=== PATIENT | male | born 2000 | race Two or more races ===

== ENCOUNTER 2022-05-19 14:05 | Emergency (ER) | payer OTHER, SELFPAY ==
[2022-05-19 14:14] VITALS: BP 145/80; PULSE 104; RESP 20; TEMP 38.1; O2SAT 100
--- NOTE | 2022-05-19 14:41 | ED.URI ---
HPI - URI/Sore Throat General Chief Complaint: Upper Respiratory Infection Stated Complaint: Coughing,Fever Time Seen by Provider: 05/19/22 14:20 Source: patient Mode of arrival: ambulatory Limitations: no limitations History of Present Illness HPI Narrative: Elsie is a 21-year-old male patient presenting to the clinic today with complaints of nasal congestion, cough and fever x2 days. He reports his mother is also sick. MD elicited complaint: fever, cough and nasal congestion Related Data Allergies Allergy/AdvReac Type Severity Reaction Status Date / Time Penicillins Allergy Mild Rash Verified 05/19/22 14:25 amoxicillin Allergy Unknown Verified 05/19/22 14:25 Sulfa (Sulfonamide Allergy Unknown Verified 05/19/22 14:25 Antibiotics) CETIRIZINE HCL AdvReac Intermediate EYES Uncoded 05/19/22 14:25 SWELLED SHUT Review of Systems Review of Systems: Pertinent positives per HPI. Patient denies any fever, chills, rash, headache, visual changes, dizziness, cough, shortness of breath, chest pain, palpitations, nausea, vomiting, diarrhea, constipation, abdominal pain, or any urinary issues. PMFSH Family History Family History Mother Family history of thyroid disease Family history of thalassemia Father Family history of diabetes mellitus in first degree relative Grandparent Family history of lupus erythematosus Social History Social History Smoking status: Never smoker Second hand tobacco smoke exposure: No Alcohol intake: never Gender identity (if verbalized by the patient): Male Comments At the time of my signature, I reviewed and agree with the nursing past medical, surgical, social, and family history. There is no relevant family history pertinent to the patient complaint. Exam Narrative: General: Well-developed, well nourished, in no apparent distress Head: Normocephalic, atraumatic Eyes: Pupils equally round and reactive to light bilaterally, EOM intact, sclera and conjunctive clear, no discharge, lids normal Ears: TMs intact and clear, ear canals clear, no drainage, grossly hearing normal. Nose: Nares patent, clear nasal discharge, no inflammation, no sinus tenderness. Mouth: Oral pharynx without lesions or masses, good dentition, MMM. oropharynx red, postnasal drip Neck: Supple, trachea midline, no enlargement of anterior or posterior cervical nodes, no thyroid masses or goiter palpable. Cardio: Regular rate and rhythm, s1 and s2 normal, no murmur appreciated. Resp: Clear to auscultation bilaterally, no rhonchi, rales, wheezing or rubs Course Course Emergency Course: Portions of this record may have been created with voice recognition software. Level of Care: Express Care Visit Vital Signs Vital signs: Vital Signs Temperature 38.1 C H 05/19/22 14:14 Pulse Rate 104 H 05/19/22 14:14 Respiratory Rate 20 05/19/22 14:14 Blood Pressure 145/80 H 05/19/22 14:14 Pulse Oximetry 100 05/19/22 14:14 Oxygen Delivery Room Air 05/19/22 14:14 Temperature 38.1 C H 05/19/22 14:14 Pulse Rate 104 H 05/19/22 14:14 Respiratory Rate 20 05/19/22 14:14 Blood Pressure 145/80 H 05/19/22 14:14 Pulse Oximetry 100 05/19/22 14:14 Oxygen Delivery Room Air 05/19/22 14:14 Vital signs reviewed MDM - URI/Sore Throat MDM Narrative Medical decision making narrative: at the time of visit patient is resting comfortably on the exam table. Influenza testing and COVID testing were completed in the clinic today COVID testing was negative and influenza test was positive. I will place the patient on a prescription for Tamiflu. Supportive measures were discussed with the patient and he voiced understanding of discharge instructions and agrees to treatment plan Differential Diagnosis Differential diagnosis: Likely upper respiratory infection, otitis media,
== END 2022-05-19 14:54 | disposition home or self-care (01) ==
PROVIDERS: Emergency Provider Nurse Practitioner Family
DX: J10.1 Influenza due to other identified influenza virus with other respiratory manifestations (principal); Z20.822 Contact with and (suspected) exposure to COVID-19
CPT/HCPCS: 87426; 87804; 99213; C9803; G0463

== ENCOUNTER 2022-10-04 21:51 | Emergency (ER) | payer OTHER, SELFPAY ==
--- NOTE | ~2022-10-04 | XR_ITS ---
Left ankle Technique: AP, oblique, and lateral views were obtained. Clinical History: 3 Findings: No acute fracture or dislocation is seen. Osseous alignment is anatomic. Ankle mortise and other visualized joint spaces are preserved. Lateral soft tissue swelling noted. Impression: No fracture or dislocation. Lateral soft tissue swelling. Reviewed, dictated and finalized at [facility]. Impression: No fracture or dislocation. Lateral soft tissue swelling.
[2022-10-04 21:53] VITALS: BP 155/70; PULSE 105; RESP 16; TEMP 37.3; O2SAT 98
--- NOTE | 2022-10-05 00:40 | ED.LOWEXIN ---
HPI - Extremity Injury (Lower) General Chief Complaint: Extremity Injury, Lower <Nae Caldera PA-C - Last Filed: 10/05/22 02:34> Stated Complaint: rolled left ankle <PAULO Clements Last Filed: 10/05/22 02:34> Time Seen by Provider: 10/04/22 22:57 <PAULO Clements Last Filed: 10/05/22 02:34> History of Present Illness HPI Narrative: 21-year-old male reports for evaluation of left ankle pain after he inverted it while playing basketball earlier this evening. He is reporting swelling and ecchymosis to the lateral aspect of the ankle, difficulty ambulating. He reports icing his ankle and taking ibuprofen 5 hours ago. Denies other injuries obtained, did not hit his head, no LOC. <PAULO Clements Last Filed: 10/05/22 02:34> Related Data Allergies/Adverse Reactions: Allergies Allergy/AdvReac Type Severity Reaction Status Date / Time Penicillins Allergy Mild Rash Verified 10/04/22 21:52 amoxicillin Allergy Unknown Other Verified 10/04/22 21:52 Sulfa (Sulfonamide Allergy Unknown Other Verified 10/04/22 21:52 Antibiotics) CETIRIZINE HCL AdvReac Intermediate EYES Uncoded 10/04/22 21:52 SWELLED SHUT <PAULO Clements Last Filed: 10/05/22 02:34> Review of Systems Review of Systems: CONSTITUTIONAL: Denies fever, chills EYES: Denies visual changes, redness, or discharge. ENT: Denies rhinorrhea, congestion, sore throat, or otalgia. CARDIOVASCULAR: Denies chest pain, palpitations, or edema. RESPIRATORY: Denies cough or dyspnea. GASTROINTESTINAL: Denies abdominal pain, nausea, vomiting, or diarrhea. GENITOURINARY: Denies dysuria or hematuria. SKIN: Denies rash or itching. MUSCULOSKELETAL: See HPI NEUROLOGIC: Denies headache, numbness, dizziness, or weakness. PSYCHIATRIC: Denies anxiety or depression. <PAULO Clements Last Filed: 10/05/22 02:34> COUNTS INCLUDE 234 BEDS AT THE [facility] Family History Family History: Family History Mother Family history of thyroid disease Family history of thalassemia Father Family history of diabetes mellitus in first degree relative Grandparent Family history of lupus erythematosus <Nae Caldera PA-C - Last Filed: 10/05/22 02:34> Social History Social History: Social History Smoking status: Never smoker Second hand tobacco smoke exposure: No Alcohol intake: never Gender identity (if verbalized by the patient): Male <Nae Caldera PA-C - Last Filed: 10/05/22 02:34> Exam Narrative: GENERAL: Well-appearing, well-nourished, and in no acute distress. Patient resting comfortably in exam bed. He is pleasant and conversational. HEAD: Normocephalic, atraumatic. EYES: PERRLA and EOMI. ENT: Nares clear, no rhinorrhea or epistaxis. Mucous membranes moist. Oropharynx without tonsillar hypertrophy exudate or other lesions. NECK: Supple. No adenopathy or masses. CHEST: Clear to auscultation. No respiratory distress. No wheezes rales or rhonchi HEART: Regular rate and rhythm. No murmur heard. Normal peripheral pulses. EXTREMITIES: LLE: Edema and ecchymosis over the lateral malleolus extending over the dorsal aspect of the foot. Negative Bowers's test. No tenderness over Achilles, proximal tibia, toes, medial malleolus, calcaneus. Negative calf squeeze. DP pulses 2+. Cap refill less than 2. Sensation intact. Patient able to wiggle his toes. Limited range of motion to ankle secondary to pain. SKIN: Warm, dry, no rash. NEURO: No focal deficits. Alert and oriented x3. PSYCH: Normal mood and affect. <Nae Caldera PA-C - Last Filed: 10/05/22 02:34> Course TECHNOLOGY RISK INTERN/PA Physician Supervision This is a was performed by both a physician and an APC. I performed all aspects of the MDM as documented w/ the following additions: 21-year-old male presenting with ankle pain. X-rays were negati
[2022-10-05] MEDS: HYDROcodone/acetaminophen (*CRX) 5-325 MG TABLET 1 TAB PO (01:38)
[2022-10-05] MEDS: IBUPROFEN 600 MG TABLET PO (01:38)
== END 2022-10-05 01:45 | disposition home or self-care (01) ==
LOC: ANHED 10-05 00:53
PROVIDERS: Emergency Provider Physician Assistant
DX: S93.402A Sprain of unspecified ligament of left ankle, initial encounter (principal); X50.0XXA Overexertion from strenuous movement or load, initial encounter
CPT/HCPCS: 73610; 99283; A9270

== ENCOUNTER 2023-10-11 13:36 | Emergency (ER) | payer OTHER, SELFPAY ==
--- NOTE | 2023-10-11 13:37 | ED.URI ---
HPI - URI/Sore Throat General Chief Complaint: Upper Respiratory Infection Stated Complaint: allergy flare up Time Seen by Provider: 10/11/23 13:37 Source: patient Mode of arrival: ambulatory Limitations: no limitations History of Present Illness HPI Narrative: Abel is a 22-year-old male patient presenting to the clinic today with complaints of ?allergy flare-up?. He reports no fever or chills. Productive cough at times with clear phlegm and sometimes the light green phlegm. Reports when he blows his nose he also has clear phlegm and sometimes like green phlegm and sometimes a little bit of blood in his nasal secretions. States he does have some chest tightness at times and pain in his back. History of asthma. Is taking his albuterol inhaler, allergy eyedrops, Flonase, and Claritin without relief. Symptoms have been going on for about a week. Is wheezing at times. Denies any shortness of breath or wheeze at this time. MD elicited complaint: sore throat and nasal congestion Related Data Allergies Allergy/AdvReac Type Severity Reaction Status Date / Time Penicillins Allergy Mild Rash Verified 10/11/23 13:49 amoxicillin Allergy Unknown Other Verified 10/11/23 13:49 Sulfa (Sulfonamide Allergy Unknown Other Verified 10/11/23 13:49 Antibiotics) CETIRIZINE HCL AdvReac Intermediate EYES Uncoded 10/11/23 13:49 SWELLED SHUT Review of Systems Review of Systems: Pertinent positives per HPI. Patient denies any fever, chills, rash, headache, visual changes, dizziness,sore throat, shortness of breath, chest pain, palpitations, nausea, vomiting, diarrhea, constipation, abdominal pain, or any urinary issues. [facility] Family History Family History Mother Family history of thyroid disease Family history of thalassemia Father Family history of diabetes mellitus in first degree relative Grandparent Family history of lupus erythematosus Social History Social History Smoking status: Never smoker Second hand tobacco smoke exposure: No Alcohol intake: never Gender identity (if verbalized by the patient): Male Comments At the time of my signature, I reviewed and agree with the nursing past medical, surgical, social, and family history. There is no relevant family history pertinent to the patient complaint. Exam Narrative: General: Well-developed, well nourished, in no apparent distress Head: Normocephalic, atraumatic Eyes: Pupils equally round and reactive to light bilaterally, EOM intact, sclera and conjunctive clear, no discharge, lids normal Ears: TMs intact and clear, ear canals clear, no drainage, grossly hearing normal. Nose: Nares patent, no discharge, no inflammation, no sinus tenderness. Mouth: Oral pharynx without lesions or masses, good dentition, MMM. Neck: Supple, trachea midline, no enlargement of anterior or posterior cervical nodes, no thyroid masses or goiter palpable. Cardio: Regular rate and rhythm, s1 and s2 normal, no murmur appreciated. Resp: Clear to auscultation bilaterally, no rhonchi, rales, wheezing or rubs Course Course Emergency Course: Portions of this record may have been created with voice recognition software. Level of Care: Express Care Visit Vital Signs Vital signs: Vital Signs Temperature 37.2 C 10/11/23 13:50 Pulse Rate 78 10/11/23 13:50 Respiratory Rate 16 10/11/23 13:50 Blood Pressure 137/84 10/11/23 13:50 Pulse Oximetry 99 10/11/23 13:50 Oxygen Delivery Room Air 10/11/23 13:50 Temperature 37.2 C 10/11/23 13:50 Pulse Rate 78 10/11/23 13:50 Respiratory Rate 16 10/11/23 13:50 Blood Pressure 137/84 10/11/23 13:50 Pulse Oximetry 99 10/11/23 13:50 Oxygen Delivery Room Air 10/11/23 13:50 Vital signs reviewed MDM - URI/Sore Throat MDM Narrative Medical decision making narrative: At the time
[2023-10-11 13:50] VITALS: BP 137/84; PULSE 78; RESP 16; TEMP 37.2; O2SAT 99
== END 2023-10-11 14:09 | disposition home or self-care (01) ==
PROVIDERS: Emergency Provider Nurse Practitioner Family
DX: J06.9 Acute upper respiratory infection, unspecified (principal); J45.909 Unspecified asthma, uncomplicated
CPT/HCPCS: 99213; G0463

== ENCOUNTER 2024-11-16 18:17 | Emergency (ER) | payer OTHER, SELFPAY ==
[2024-11-16 18:28] VITALS: BP 122/65; PULSE 84; RESP 14; TEMP 38.4; O2SAT 100
--- NOTE | 2024-11-16 18:35 | ED_ITS ---
HPI - General Adult General Chief complaint: Upper Respiratory Infection Stated complaint: Fever Time Seen by Provider: 11/16/24 18:29 Source: patient, RN notes reviewed and old records reviewed Mode of arrival: ambulatory Limitations: no limitations History of Present Illness HPI narrative: 23-year-old male presents to the [facility] with complaints of fevers, body aches, abdominal pain since waking up at 8:00 a.m. this morning. No treatment prior to arrival. Related Data Allergies Allergy/AdvReac Type Severity Reaction Status Date / Time Penicillins Allergy Mild Rash Verified 11/16/24 18:34 amoxicillin Allergy Unknown Other Verified 11/16/24 18:34 Sulfa (Sulfonamide Allergy Unknown rash Verified 11/16/24 18:34 Antibiotics) CETIRIZINE HCL AdvReac Intermediate EYES Uncoded 11/16/24 18:34 SWELLED SHUT Review of Systems Review of Systems: All systems reviewed & are unremarkable except as noted in HPI and below Constitutional: Constitutional: Reports as per HPI, Reports body ache(s), Re ports fatigue and Reports fever(s) ENT: Reports system reviewed and no additional complaints, except as documented Cardiovascular: Cardiovascular: Reports no additional cardiovascular complaints, Denies chest pain and Denies dyspnea Respiratory: Respiratory: Reports no additional respiratory complaints, Denies chest congestion, Denies cough and Denies dyspnea Gastrointestinal: Gastrointestinal: Reports as per HPI, Reports abdominal pain, Denies diarrhea, Reports nausea and Denies vomiting Musculoskeletal: Musculoskeletal: Reports as per HPI and Reports myalgias Integumentary/Breasts: Skin/Breast: Reports system reviewed and no additional complaints, except as docu PMFSH Family History Family History Mother Family history of thyroid disease Family history of thalassemia Father Family history of diabetes mellitus in first degree relative Grandparent Family history of lupus erythematosus Social History Social History Smoking status: Never smoker Second hand tobacco smoke exposure: No Alcohol intake: never Gender identity (if verbalized by the patient): Male Comments At the time of my signature, I reviewed and agree with the nursing past medical, surgical, social, and family history. There is no relevant family history pertinent to the patient complaint. Exam Const: General: cooperative, no acute distress, well developed, alert, ill appearing acutely, tired appearing, uncomfortable and well nourished Nutritional Appearance: well nourished Orientation/consciousness: patient oriented x3 Limitations: no limitations HENMT: Head: normal to inspection Eyes: General: appearance normal, both eyes and all related structures Alignment and Position: alignment normal Neck: Neck: normal visual inspection, full ROM, no lymphadenopathy and no meningeal signs Chest: Chest palpation & inspection: normal inspection of the chest Resp: Effort & Inspection: normal respiratory effort and able to speak in complete sentences Auscultation: clear to auscultation bilaterally, no crackles, no rales, no rhonchi and no wheezes Cardio: Rate: regular rate GI: GI Palp: Yes abdominal tenderness, Yes Firmness to palpation present (GI), Yes Tenderness to palpation present (GI) and Yes Guarding due to palpation present (GI) Auscultation: Hyperactive bowel sounds present Skin: General skin exam: normal color and no rashes or lesions noted Neuro: General: patient oriented x3, gait normal, moves all extremities and no meningeal signs Cognition (Neuro): normal cognition Speech: normal speech Gait exam (Neuro): Normal gait present Extrem: General: normal to inspection, full ROM, capillary refill normal and normal gait Psych: Appearance: grossly normal and well kempt Mental Status: mental status grossly normal Speech and movement: Normal speech and movement present and Clear speech present Affect: normal affect Attitude: cooperative Course Course Level of Care: Express Care Visit Vital Signs Vital signs: Vital Signs Temperature 101.1 F H 11/16/24 18:28 Pulse Rate 84 11/16/24 18:28 Respiratory Rate 14 11/16/24 18:28 Blood Pressure 122/65 11/16/24 18:28 Pulse Oximetry 100 11/16/24 18:28 Oxygen Delivery Room Air 11/16/24 18:28 Temperature 101.1 F H 11/16/24 18:28 Pulse Rate 84 11/16/24 18:28 Respiratory Rate 14 11/16/24 18:28 Blood Pressure 122/65 11/16/24 18:28 Pulse Oximetry 100 11/16/24 18:28 Oxygen Delivery Room Air 11/16/24 18:28 Reviewed Transfer Transfered to: [facility] Transportation: Other (POV) Transfer rationale: Patient with right lower quadrant pain, rebound tenderness, fevers sending for higher level of care rule out appy acute abdomen. Accepting physician: Dr Santizo Spoke with Hair RN, Charge Nurse Medical Decision Making MDM Narrative Medical decision making narrative: Patient appears extremely uncomfortable laying on exam table. Patient is febrile Patient with right lower quadrant pain sending for higher level care rule out appendicitis Transfer instructions reviewed with patient and his mom. Do not eat or drink until cleared by ER provider. I chose to go to [facility] All questions have been answered, and the patient deny any further questions. Some parts of this dictation were generated by voice recognition software and may contain typographical and/or grammatical inaccuracies. Differential Diagnosis Differential Diagnosis: Flu, COVID, URI, appendicitis, acute abdomen Medical Records Medical records reviewed: Yes I reviewed the external patient's medical records. Vital Signs Vital Signs: Vital Signs Temperature 101.1 F H 11/16/24 18:28 Pulse Rate 84 11/16/24 18:28 Respiratory Rate 14 11/16/24 18:28 Blood Pressure 122/65 11/16/24 18:28 Pulse Oximetry 100 11/16/24 18:28 Oxygen Delivery Room Air 11/16/24 18:28 Temperature 101.1 F H 11/16/24 18:28 Pulse Rate 84 11/16/24 18:28 Respiratory Rate 14 11/16/24 18:28 Blood Pressure 122/65 11/16/24 18:28 Pulse Oximetry 100 11/16/24 18:28 Oxygen Delivery Room Air 11/16/24 18:28 Reviewed Lab Data Lab results reviewed: Yes I reviewed the patient's lab results. Labs: Lab Results 11/16/24 Range/Units 18:38 POC Influenza A Ag Negative (Negative) POC Influenza B Ag Negative (Negative) POC SARS CoV-2 Ag Negative (Negative) Reviewed Critical Care Time Critical Care Time Critical Care Time: No Discharge Plan Discharge Clinical Impression: Acute right lower quadrant pain, Fever of unknown origin Patient Disposition: Acute Care Hospital Condition: Stable Patient Language: [place] Island[place] Follow-up/Referrals: PHYSICIAN,SUPERVISOR [employer]ESS[employer] [Primary Care Provider] -
[2024-11-16 18:40] LABS: EDCOVIDSCREEN Negative (Negative); EDINFLUASCREEN Negative (Negative); EDINFLUBSCREEN Negative (Negative)
== END 2024-11-16 18:41 | disposition short-term general hospital (02) ==
PROVIDERS: Emergency Provider Nurse Practitioner
DX: R10.31 Right lower quadrant pain (principal); R50.9 Fever, unspecified; Z20.822 Contact with and (suspected) exposure to COVID-19
CPT/HCPCS: 87426; 87804; 99212; G0463